=== PATIENT | male | born 1995 | race Caucasian/White ===

== ENCOUNTER → 2018-07-26 | Outpatient (CLI) | payer BC ==
[~2018-07-26] MED LIST: AMOX-556 PO; IOPAMIDOL 76% 100 ML INFUS BTL 100 ML ONE; LOR10 PO
--- NOTE | 2018-07-26 16:05 | RADIOLOGY IMAGING REPORT ---
FACILITY: [facility] [place] PATIENT NAME: Jeremias Verma : 1995 MR: [id number] V: [id number] EXAM DATE: ORDERING PHYSICIAN: WINSTON RODRÍGUEZ TECHNOLOGIST: Location: [facility] Patient: Jeremias Verma : 1995 Visit/Account:[id number] Date of Sevice: 07/26/2018 CT ABDOMEN PELVIS W/ CON HISTORY: Abdominal pain, elevated white count , TECHNIQUE: CT abdomen and pelvis with intravenous contrast. One of the following dose optimization techniques was utilized in the performance of this exam: autom ated exposure control; adjustment of the mA and/or kV according to patient size; or use of iterative reconstruction technique. Specific details can be referenced in the facility?s radiology CT exam oper ational policy. CONTRAST: 85 mL Isovue-370 COMPARISON: None. FINDINGS: Visualized lung bases: Within the left lower lobe, there are patchy alveolar opacities with a mild " tree-in-bud" appearance . No confluent consolidation is identified. The right lung is clear. Hepatobiliary: Negative. Spleen: Negative. Adrenals: Negative. Pancreas: Negative. Kidneys/: Negative. GI: Negative. The appendix is normal. There is a trace amount of free fluid noted within the pelvis just anterior to the rectum. No other inflammatory changes are seen.. Vessels/spaces/nodes: Negative. Bones/soft tissues: Negative. IMPRESSION: Trace amount of free fluid is present within the pelvis, the abdomen and pelvis are otherwise within normal limits. No inflammatory changes are identified. The appendix is normal. Patchy alveolar opacities are present within the left lower lobe suggestive of infectious or inflamma tory bronchiolitis. Report Dictated By: Jarret Hill at 07/26/2018 3:51 PM Report E-Signed By: Jarret Hill at 07/26/2018 4:02 PM WSN:[id number]
== END ==
LOC: CT 13:57
PROVIDERS: ATTEND Nurse Practitioner Family
DX: R10.9 Unspecified abdominal pain (principal); D72.829 Elevated white blood cell count, unspecified
CPT/HCPCS: 74177; Q9967

== ENCOUNTER → 2018-07-26 | Outpatient (REF) | payer BC, OTHER ==
[~2018-07-26] MED LIST changes: -IOPAMIDOL 76% 100 ML INFUS BTL 100 ML ONE
[2018-07-26 13:20] LABS: PLATELET COUNT, AUTOMATED 169 K/uL (150-450)
== END ==
PROVIDERS: ATTEND Nurse Practitioner Family
DX: R10.9 Unspecified abdominal pain (principal)
CPT/HCPCS: 82040; 82247; 82310; 82374; 82435; 82565; 82947; 84075; 84132; 84155; 84295; 84450; 84460; 84520; 85025